=== PATIENT | female | born 1985 | race Caucasian/White ===

== ENCOUNTER 2021-02-07 06:00 | Inpatient (IN) | payer BC ==
[2021-02-07] MEDS ORDERED: METHYLERGONOVINE 0.2 MG/ML 1 ML AMP IM PRN (06:24)
[2021-02-07] MEDS ORDERED: TERBUTALINE 1 MG/ML VIAL SQ PRN (06:24)
[2021-02-07] MEDS ORDERED: CARBOPROST TROMETHAMINE 250 MCG/ML 1 ML AMP IM PRN (06:24)
[2021-02-07] MEDS ORDERED: OXYTOCIN 10 UNIT/ML 1 ML VIAL IM PRN (06:24)
[2021-02-07] MEDS ORDERED: LIDOCAINE 0.5% (PF) 5 MG/ML (50 ML SDV) SQ PRN (06:24)
[2021-02-07] MEDS ORDERED: OXYTOCIN 30 UNITS/500 ML NS 30 UNIT in SALINE 1 500ML.BAG IV SCH (06:30)
[2021-02-07] MEDS: LACTATED RINGERS 1,000 ML IV SCH ×3 (06:41→12:19)
[2021-02-07 07:03] LABS: Basophils % (A) 0 %; Eosinophils # (A) 0.1 k/uL (0-0.7); Eosinophils % (A) 1 %; HCT 36.1 % (34.0-46.0); HGB 12.7 gm/dL (11.4-16.0); Lymphocytes # (A) 2.1 k/uL (1.0-4.8); Lymphocytes % (A) 21 %; MCH 31.7 pg (25.0-35.0); MCV 90.6 fL (80.0-100.0); Mean Platelet Volume 7.1; Monocytes # (A) 0.5 k/uL (0-1.0); Monocytes % (A) 5 %; Neutrophils # (A) 7.1 k/uL (1.3-7.7); Neutrophils % (A) 71 %; Platelet Count 278 k/uL (150-450); RBC 3.99 m/uL (3.80-5.40); RDW 13.4 % (11.5-15.5)
--- NOTE | 2021-02-07 07:43 | P.HPOB ---
History of Present Illness H&P Date: 02/07/21 Chief Complaint: Here for elective induction of labor This is a 35-year-old white female 1 para 0 EDC 02/14/2021 at 39 weeks gestation who presents today for induction of labor. Fetus is been active throughout the . She denies vaginal bleeding, fluid leakage, or any additional issues. is remarkable for hypertension, advanced maternal age. Past medical history is significant for asthma in childhood. Past surgical history LEEP procedure 2015, wisdom teeth extracted, adenoidectomy. Current medications vitamins daily, baby aspirin daily. ALLERGIES none known. Family history significant for breast cancer, colon polyps, pancreatic cancer, hypertension, CVA, cardiac disease. Social history patient is single, her boyfriend is present. 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 history blood type is A+, rubella status immune. VDRL testing, urine culture, hepatitis B surface antigen, HIV testing, gonorrhea and chlamydia cultu res, group B strep cultures negative. One-hour Glucola 100. On exam patient is 5 foot 8 inches, 275 pounds, blood pressure 147/71 on admission, pulse 94. The general physical exam is within normal limits. Chest is clear in all correia. Extremities reveal no edema. Cervix is 3 cm dilated, 70% effaced, -2 station, vertex presentation, anterior and soft. Artificial amniorrhexis reveals clear fluid. heart rate is consistent with reactive NST. Impression: 39 week intrauterine , -induced hypertension, advanced maternal age, favorable cervix. Here for elective induction of labor. All signs reassuring. Plan: Oxytocin per hospital protocol. Close maternal and surveillance. Analgesic options reviewed with the patient. Anticipate normal spontaneous vaginal delivery. Review of Systems Constitutional: Reports as per HPI Past Medical History Past Medical History: Asthma, GERD/Reflux Additional Past Medical History / Comment(s): gestational HTN, childhood asthma History of Any Multi-Drug Resistant Organisms: None Reported Past Surgical History: Adenoidectomy Additional Past Surgical History / Comment(s): wisdom teeth Past Anesthesia/Blood Transfusion Reactions: Postoperative Nausea & Vomiting (PONV) Past Psychological History: Anxiety, Depression Additional Psychological History / Comment(s): not currently medicated Smoking Status: Former smoker Past Alcohol Use History: None Reported Past Drug Use History: None Reported - Past Family History Mother Family Medical History: No Reported History Medications and Allergies Home Medications Medication Instructions Recorded Confirmed Type Aspirin [Children's Aspirin] 162 mg PO DAILY 01/21/21 02/07/21 History Iron 18 mg PO DAILY 01/21/21 02/07/21 History Pnv No.95/Ferrous Fum/Folic AC 1 each PO DAILY 01/21/21 02/07/21 History [ Multivitamin Tablet] Famotidine [Pepcid] 20 mg PO DAILY 02/07/21 02/07/21 History Allergies Allergy/AdvReac Type Severity Reaction Status Date / Time No Known Allergies Allergy Verified 02/07/21 06:22 Exam Vital Signs Temp Pulse Resp BP Pulse Ox 02/07/21 06:46 96.6 F L 94 20 147/71 99 Intake and Output 02/06/21 02/07/21 02/07/21 22:59 06:59 14:59 Other: Weight 124.738 kg See dictation under HPI please Results Result Diagrams: 02/07/21 06:46 Assessment and Plan Assessment: 39 week intrauterine , advanced maternal age, maternal anxiety, hypertension and . All signs reassuring. Plan: Oxytocin per hospital protocol. Close maternal and surveillance. Anticipate normal spontaneous vaginal delivery. Time with Patient: Less than 30
[2021-02-07] MEDS ORDERED: fentaNYL (PF) 50 MCG/ML 5 ML AMP ONE (09:20)
[2021-02-07] MEDS ORDERED: ROPIVACAINE 5MG/ML 20ML VIAL ONE (09:20)
[2021-02-07] MEDS ORDERED: SODIUM CHLORIDE 0.9% 100 ML BAG ONE (09:20)
[2021-02-07] MEDS ORDERED: diphenhydrAMINE 50 MG CAP PO PRN (16:58)
[2021-02-07] MEDS ORDERED: diphenhydrAMINE ELIXIR 25 MG/10 ML CUP PO PRN (16:58)
[2021-02-07] MEDS ORDERED: diphenhydrAMINE 25 MG CAP PO PRN (16:58)
[2021-02-07] MEDS ORDERED: HYDROCORTISONE 2.5% RECTAL CREAM 30 GM TUBE RECTAL PRN (16:58)
[2021-02-07] MEDS ORDERED: LANOLIN CREAM 5 GM TUBE TOPICAL PRN (16:58)
[2021-02-07] MEDS ORDERED: ZOLPIDEM 5 MG TAB PO PRN (16:58)
[2021-02-07] MEDS ORDERED: diphenhydrAMINE 50 MG/ML 1 ML VIAL IVP PRN ×2 (16:58)
[2021-02-07] MEDS ORDERED: BENZOCAINE/MENTHOL SPRAY 1 GM/SPRAY AEROSOL TOPICAL PRN (16:58)
[2021-02-07] MEDS ORDERED: SIMETHICONE 80 MG CHEWABLE PO PRN (16:58)
--- NOTE | 2021-02-07 16:58 | P.PROBDLV ---
Vaginal Delivery Note - . Vaginal Delivery Note: This is a 35-year-old female 1 para 0 EDC 817 2139 weeks gestation who presented for induction with a history of hypertension. Rupee strep cultures negative, rubella status immune, blood type A positive. Please see dictated history and physical for details. Artificial amniorrhexis revealed clear fluid. Oxytocin was started and titrated per hospital protocol. Patient requested epidural and this was placed without difficulty per the anesthesia staff. She progressed well through the first stage of labor, became completely dilated at 1552 hrs. and began the second stage of labor at that time. With excellent maternal expulsive efforts ultimately the 's head crowned on the perineal body. Perineum was prepped and draped in usual sterile fashion. Patient was coached to continue exaggerated abduction of the lower extremities. delivered occiput anterior and restituted accordingly. There was a nuchal cord that was reduced. The right shoulder presented from underneath the pubic symphysis and was delivered with steady gentle downward traction. The oropharynx, nasopharynx, and external nares were all bulb suctioned on the perineal body. Patient was officially delivered of a liveborn female infant at 1637 hrs. Umbilical cord was doubly clamped and ligated, she was handed to waiting nurses for evaluation where scores of 9 and 9 at one and 5 minutes respectively were given. The placenta delivered spontaneously, it was inspected and noted to be intact with trivascular cord at 1640 hrs. Perineal body was then redraped and inspection of the cervix, vagina, perineum, periurethral, and perirectal areas revealed a small left first-degree laceration repaired in the usual fashion using a single ckohmv-ab-ivade suture of repeat. weighed 7 lbs. 13 oz. or 3555 g. Total estimated blood loss 250 mL's. All sponge needle and enhancement counts are correct at the end of the procedure. Patient is allowed to begin the bonding experience in the LDR.
[2021-02-07] MEDS: IBUPROFEN 600 MG TAB PO SCH (18:00)
[2021-02-07] MEDS: SENNOSIDES-DOCUSATE SODIUM 1 EACH TAB PO SCH (20:10)
[2021-02-08] MEDS: IBUPROFEN 600 MG TAB PO SCH ×4 (02:20→15:02)
[2021-02-08] MEDS: ACETAMINOPHEN TAB 325 MG TAB PO PRN ×3 (06:01→11:47)
[2021-02-08] MEDS: SENNOSIDES-DOCUSATE SODIUM 1 EACH TAB PO SCH (07:49)
[2021-02-08 07:57] VITALS: RESP 16
--- NOTE | 2021-02-08 08:03 | P.DS ---
Providers Date of admission: 02/07/21 06:06 Expected date of discharge: 02/08/21 Attending physician: Yessica Serrano Primary care physician: Stated None Hospital Course: This is a 35-year-old female 1 para 0 who presented at 39 weeks for induction of labor with favorable cervix. is remarkable for hypertension. Group B strep cultures negative. Rubella status immune. Please see dictated history and physical for details. Artificial amniorrhexis revealed clear fluid. Oxytocin was started and titrated per hospital protocol. Patient received an epidural per her request. She went on to deliver vaginally a liveborn female with scores of 9 and 9 at one and 5 minutes respectively. weighed 3555 g or 7 lbs. 13 oz. There was a small first-degree perineal laceration easily repaired. Please see my dictated delivery note for details. This morning the patient is doing well. She is voiding, inability, passing flatus without difficulty. Vital signs are stable and she is afebrile. Blood pressure has been normal, 120 to 130s over 70s to 80s. Minimal lochia rubra. Breasts are not engorged. is doing well. Patient is judged to be in very good condition for discharge home. Patient will follow-up with me in the office in 6 weeks. I have reminded her no intercourse, tampons or douching. She will use swuw-lne-mkgirtl Advil or Aleve, or Motrin as needed for pain. I have asked her to call with any fevers shakes or chills, foul smelling or copious lochia, with the passage of large blood clots, with any pain not alleviated by tynx-yrp-iunsjlo products, or indeed with any concerns. infant will follow-up with block engraver as per recommendations. Assessment: Doing well day #1 Patient Condition at Discharge: Good Plan - Discharge Summary Discharge Rx Participant: No New Discharge Prescriptions: No Action Aspirin [Children's Aspirin] 162 mg PO DAILY Iron 18 mg PO DAILY Pnv No.95/Ferrous Fum/Folic AC [ Multivitamin Tablet] 1 each PO DAILY Famotidine [Pepcid] 20 mg PO DAILY Discharge Medication List Aspirin [Children's Aspirin] 162 mg PO DAILY 01/21/21 [History] Iron 18 mg PO DAILY 01/21/21 [History] Pnv No.95/Ferrous Fum/Folic AC [ Multivitamin Tablet] 1 each PO DAILY 01/21/21 [History] Famotidine [Pepcid] 20 mg PO DAILY 02/07/21 [History] Follow up Appointment(s)/Referral(s): Yessica Serrano MD [STAFF PHYSICIAN] - 6 Weeks Discharge Disposition: HOME SELF-CARE
[2021-02-08 12:03] VITALS: BP 130/66; PULSE 76; TEMP 98.3
== END 2021-02-08 17:15 | disposition home or self-care (01) | DRG 807 ==
LOC: 4FBP 06:06
PROVIDERS: ADMIT Obstetrics & Gynecology; ATTEND Obstetrics & Gynecology
PROC: 10E0XZZ Delivery of Products of Conception, External Approach (ICD-10-PCS; principal; 2021-02-07)
PROC: 0HQ9XZZ Repair Perineum Skin, External Approach (ICD-10-PCS; principal; 2021-02-07)
DX: O99.344 Other mental disorders complicating childbirth (principal); Z37.0 Single live birth; O99.52 Diseases of the respiratory system complicating childbirth; Z3A.39 39 weeks gestation of pregnancy; Z79.82 Long term (current) use of aspirin; Z80.0 Family history of malignant neoplasm of digestive organs; Z80.3 Family history of malignant neoplasm of breast; Z82.3 Family history of stroke; Z82.49 Family history of ischemic heart disease and other diseases of the circulatory system; Z87.891 Personal history of nicotine dependence; Z83.71 Family history of colonic polyps; O70.0 First degree perineal laceration during delivery; O69.81X0 Labor and delivery complicated by cord around neck, without compression, not applicable or unspecified; O13.4 Gestational [pregnancy-induced] hypertension without significant proteinuria, complicating childbirth; J45.909 Unspecified asthma, uncomplicated; F41.9 Anxiety disorder, unspecified; F32.9 Major depressive disorder, single episode, unspecified; K21.9 Gastro-esophageal reflux disease without esophagitis
CPT/HCPCS: 85025; 86850; 86900; 86901

== ENCOUNTER 2023-11-28 06:00 | Inpatient (IN) | payer BC ==
[2023-11-28] MEDS ORDERED: TRANEXAMIC 1,000 MG/100ML-NACL 1,000 MG in EMPTY BAG 1 BAG IV PRN (06:24)
[2023-11-28] MEDS ORDERED: OXYTOCIN 10 UNIT/ML 1 ML VIAL IM PRN (06:24)
[2023-11-28] MEDS ORDERED: METHYLERGONOVINE 0.2 MG/ML 1 ML AMP IM PRN (06:24)
[2023-11-28] MEDS ORDERED: miSOPROStoL 200 MCG TAB PO PRN (06:24)
[2023-11-28] MEDS ORDERED: CARBOPROST TROMETHAMINE 250 MCG/ML 1 ML AMP IM PRN (06:24)
[2023-11-28] MEDS ORDERED: LIDOCAINE 0.5% (PF) 5 MG/ML (50 ML SDV) SQ PRN (06:24)
[2023-11-28] MEDS ORDERED: TERBUTALINE 1 MG/ML VIAL SQ PRN (06:24)
[2023-11-28] MEDS ORDERED: OXYTOCIN 30 UNITS/500 ML NS 30 UNIT in SALINE 1 500ML.BAG IV SCH (06:30)
[2023-11-28 06:56] LABS: Basophils % (A) 0 %; Eosinophils # (A) 0.2 k/uL (0-0.7); Eosinophils % (A) 2 %; HCT 36.8 % (34.0-46.0); HGB 12.5 gm/dL (11.4-16.0); Lymphocytes # (A) 1.8 k/uL (1.0-4.8); Lymphocytes % (A) 21 %; MCHC 33.9 g/dL (31.0-37.0); MCV 88.4 fL (80.0-100.0); Mean Platelet Volume 8.4; Monocytes # (A) 0.4 k/uL (0-1.0); Monocytes % (A) 5 %; Neutrophils # (A) 6.2 k/uL (1.3-7.7); Neutrophils % (A) 70 %; Platelet Count 209 k/uL (150-450); RBC 4.17 m/uL (3.80-5.40); RDW 13.6 % (11.5-15.5); WBC 8.9 k/uL (3.8-10.6)
[2023-11-28] MEDS ORDERED: ROPIVACAINE 5 MG/ML 30 ML VIAL ONE (08:42)
[2023-11-28] MEDS ORDERED: SODIUM CHLORIDE 0.9% 250 ML BAG ONE (08:42)
[2023-11-28] MEDS ORDERED: fentaNYL (PF) 50 MCG/ML 5 ML AMP ONE (08:42)
[2023-11-28] MEDS: LACTATED RINGERS 1,000 ML IV SCH (09:47)
[2023-11-28] MEDS: OXYTOCIN 30 UNITS/500 ML NS 30 UNIT in SALINE 1 500ML.BAG IV SCH (09:48)
[2023-11-28] MEDS ORDERED: BENZOCAINE/MENTHOL SPRAY 1 GM/SPRAY AEROSOL TOPICAL PRN (13:01)
[2023-11-28] MEDS ORDERED: LANOLIN CREAM 1 GM TUBE TOPICAL PRN (13:01)
[2023-11-28] MEDS ORDERED: SIMETHICONE 80 MG CHEWABLE PO PRN (13:01)
[2023-11-28] MEDS ORDERED: diphenhydrAMINE 50 MG/ML 1 ML VIAL IVP PRN ×2 (13:01)
[2023-11-28] MEDS ORDERED: HYDROCORTISONE 2.5% RECTAL CREAM 30 GM TUBE RECTAL PRN (13:01)
[2023-11-28] MEDS ORDERED: diphenhydrAMINE 50 MG CAP PO PRN (13:01)
[2023-11-28] MEDS ORDERED: diphenhydrAMINE 25 MG CAP PO PRN (13:01)
[2023-11-28] MEDS ORDERED: ZOLPIDEM 5 MG TAB PO PRN (13:01)
--- NOTE | 2023-11-28 13:05 | P.PROBDLV ---
Vaginal Delivery Note - . Vaginal Delivery Note: Findings: Viable female delivered at 1243, weight of 8 pounds 13.6 ounces 37-year-old G2, P1 at 39 weeks that presented to labor and delivery for scheduled induction of labor. Patient was admitted to labor delivery and Pitocin induction of labor was begun. Patient underwent spontaneous rupture of membranes at 8:00. Fluid was noted to be clear in nature. Patient did become quickly uncomfortable and request epidural. Initial epidural gave no relief of her discomfort therefore it was removed and replaced. The second epidural gave good relief of her contraction pain. Patient made quick progress toward complete and began pushing. Patient had a normal spontaneous vaginal delivery of a viable female infant at 1243, weight of 8 pounds 13.6 ounces. After 2- minute delay the umbilical cord was doubly clamped and cut and the placenta was delivered spontaneously intact with a three-vessel cord being noted. Patient did sustain a first-degree vaginal laceration during delivery. This was repaired in the usual fashion with 3-0 Rapide. Uterus was noted to be firm and below the umbilicus. Right rubber catheter was used to drain the bladder of clear yellow urine. All counts were to be correct x 2 at the end of the delivery. Patient and infant tolerated delivery well and are resting comfortably.
--- NOTE | 2023-11-28 13:05 | P.HPOB ---
History of Present Illness H&P Date: 11/28/23 Chief Complaint: IUP at 39 weeks 37-year-old G2, P1 at 39 weeks that presents to labor and delivery for scheduled induction of labor. Patient is receiving routine care which has been essentially uncomplicated. Patient does note good movement denies vaginal bleeding contractions or loss of fluid. blood work this patient is a blood type of a positive, rubella status immune, hepatitis B surface engine negative, HIV negative, RPR is nonreactive, group B strep cultures are negative. Review of Systems Constitutional: Denies chills, Denies fatigue, Denies fever Ears, nose, mouth and throat: Denies headache Cardiovascular: Reports leg edema Respiratory: Denies dyspnea Gastrointestinal: Denies constipation, Denies diarrhea, Denies nausea, Denies vomiting Genitourinary: Reports Past Medical History Past Medical History: Asthma, GERD/Reflux Additional Past Medical History / Comment(s): gestational HTN, childhood asthma History of Any Multi-Drug Resistant Organisms: None Reported Past Surgical History: Adenoidectomy Additional Past Surgical History / Comment(s): wisdom teeth Past Anesthesia/Blood Transfusion Reactions: No Reported Reaction, Postoperative Nausea & Vomiting (PONV) Past Psychological History: Anxiety, Depression Additional Psychological History / Comment(s): not currently medicated Smoking Status: Former smoker Past Alcohol Use History: None Reported Past Drug Use History: None Reported - Past Family History Mother Family Medical History: No Reported History Medications and Allergies Home Medications Medication Instructions Recorded Confirmed Type Aspirin [Children's Aspirin] 162 mg PO DAILY 01/21/21 02/07/21 History Iron 18 mg PO DAILY 01/21/21 02/07/21 History Pnv No.95/Ferrous Fum/Folic AC 1 each PO DAILY 01/21/21 02/07/21 History [ Multivitamin Tablet] Famotidine [Pepcid] 20 mg PO DAILY 02/07/21 02/07/21 History Sertraline [Zoloft] 25 mg PO DAILY 11/28/23 11/28/23 History Allergies Allergy/AdvReac Type Severity Reaction Status Date / Time No Known Allergies Allergy Verified 11/28/23 06:22 Exam Osteopathic Statement: *. No significant issues noted on an osteopathic structural exam other than those noted in the History and Physical/Consult. Vital Signs Resp BP 11/28/23 06:28 18 127/79 Intake and Output 11/27/23 11/28/23 11/28/23 22:59 06:59 14:59 Other: Weight 131.088 kg Targeted physical exam is performed this date General is a well-nourished well- developed female in no acute distress, breathing is nonlabored, heart has a regular rhythm, abdomen is gravid, on initial cervical exam by RN she is 3/80/-1, spontaneous rupture membranes was appreciated, heart tones have noted to be category 1 and she is kay regularly. Results Result Diagrams: 11/28/23 06:40 Assessment and Plan (1) Term Current Visit: Yes Status: Acute Code(s): Z34.90 - ENCNTR FOR SUPRVSN OF N ORMAL , UNSP, UNSP TRIMESTER SNOMED Code(s): 93063233 Plan: 37-year-old G2, P1 at 39 weeks of presents for scheduled elective induction of labor. Patient is admitted and Pitocin induction of labor has begun. Patient underwent spontaneous rupture of membranes clear in nature. Patient does request epidural. Anesthesia was notified. Anticipate spontaneous vaginal delivery.
[2023-11-28] MEDS: IBUPROFEN 600 MG TAB PO SCH (13:17)
[2023-11-28] MEDS: SENNOSIDES-DOCUSATE SODIUM 1 EACH TAB PO SCH (20:10)
[2023-11-29 01:58] VITALS: RESP 16
[2023-11-29] MEDS: ACETAMINOPHEN TAB 325 MG TAB PO PRN (04:47)
--- NOTE | 2023-11-29 08:45 | P.PNOBGVD ---
Subjective - Subjective Principal diagnosis: day #1, status postnormal spontaneous vaginal delivery Interval history: Patient is doing well this morning. She states her pain is well-controlled. She is ambulating voiding without difficulty. Lochia is known to be moderate. Infant is in the nursery for suspected infection, on IV antibiotics Patient reports: Reports appetite normal, Reports voiding normally, Reports pain well controlled, Reports ambulating normally : other (Special care nursery on IV antibiotics) Objective - Latest Vital Signs Latest vital signs: Vital Signs Temp Pulse Resp BP BP Pulse Ox 11/29/23 08:00 97.9 F 74 16 115/76 11/29/23 00:00 98.7 F 68 16 130/79 99 11/28/23 16:00 98.4 F 84 18 117/73 95 11/28/23 14:48 96.7 F L 71 16 116/58 11/28/23 14:35 97.4 F L 71 16 112/60 11/28/23 14:20 67 16 106/55 11/28/23 14:05 71 16 117/56 11/28/23 13:50 62 16 120/66 11/28/23 13:35 69 16 116/55 11/28/23 13:20 65 16 118/56 11/28/23 13:05 75 18 125/62 98 11/28/23 12:50 96.3 F L 70 18 130/62 98 Intake and Output 11/28/23 11/29/23 11/29/23 22:59 06:59 14:59 Other: # Voids 1 1 - Exam Extremities: Present: normal, edema Abdomen: Present: normal appearance, soft Uterus: Present: normal, firm Assessment and Plan (1) Term Current Visit: Yes Status: Acute Code(s): Z34.90 - ENCNTR FOR SUPRVSN OF NORMAL , UNSP, UNSP TRIMESTER SNOMED Code(s): 04135389 (2) Status post vaginal delivery Current Visit: Yes Status: Acute Code(s): QKT0565 - SNOMED Code(s): 120128916 (3) Obstetrical laceration, first degree Current Visit: Yes Status: Acute Code(s): O70.0 - FIRST DEGREE PERINEAL LACERATION DURING DELIVERY SNOMED Code(s): 89900784 Plan: Patient is doing well . Plan to continue routine care.
[2023-11-29] MEDS: SERTRALINE 25 MG TAB PO SCH (10:14)
[2023-11-29] MEDS: PRENATAL VIT-IRON-FOLIC ACID 1 EACH TABLET PO SCH (10:15)
--- NOTE | 2023-11-30 07:56 | P.DS ---
Providers Date of admission: 11/28/23 06:12 Expected date of discharge: 11/30/23 Attending physician: Rosey Allen Primary care physician: Stated None - Discharge Diagnosis(es) (1) Term Current Visit: Yes Status: Acute (2) Status post vaginal delivery Current Visit: Yes Status: Acute (3) Obstetrical laceration, first degree Current Visit: Yes Status: Acute Hospital Course: This is a 37-year-old 2 now para 2 that presented to labor and delivery on 11/27 for scheduled induction of labor. Patient had been receiving routine care which had been essentially uncomplicated. Patient had an in duction of labor with her first and was desirous of 1 with this . Patient was admitted and Pitocin induction of labor was begun. Patient had spontaneous rupture of membranes around 8 AM noted to be clear in nature. Patient did become uncomfortable and request epidural. Epidural was placed without difficulty by the anesthesia department. Patient progressed to complete began pushing and had a normal spontaneous vaginal delivery of a viable female at 1243, weight of 8 pounds 13.6 ounces. Patient has done well . In this day #2 she is ambulating and voiding without difficulty. She is tolerating a regular diet without nausea or vomiting. She states her pain is well-controlled. did go to the nursery for temperature control and rule out infection. Currently receiving IV antibiotics. Patient Condition at Discharge: Good Plan - Discharge Summary New Discharge Prescriptions: No Action Aspirin [Children's Aspirin] 162 mg PO DAILY Iron 18 mg PO DAILY Sertraline [Zoloft] 25 mg PO DAILY Pnv No.95/Ferrous Fum/Folic AC [ Multivitamin Tablet] 1 each PO DAILY Famotidine [Pepcid] 20 mg PO DAILY Discharge Medication List Aspirin [Children's Aspirin] 162 mg PO DAILY 01/21/21 [History] Iron 18 mg PO DAILY 01/21/21 [History] Pnv No.95/Ferrous Fum/Folic AC [ Multivitamin Tablet] 1 each PO DAILY 01/21/21 [History] Famotidine [Pepcid] 20 mg PO DAILY 02/07/21 [History] Sertraline [Zoloft] 25 mg PO DAILY 11/28/23 [History] Follow up Appointment(s)/Referral(s): Rosey Allen DO [Doctor of Osteopathic Medicine] - 01/01/24 1:15 pm Patient Instructions/Handouts: Vaginal Delivery (GEN), Vaginal Delivery (DC) Activity/Diet/Wound Care/Special Instructions: No intercourse, tampons, or tub baths. No heavy lifting greater than a gallon o f milk. No driving for two weeks. Call with any fever, shakes or chills, with any pain not alleviated by over the counter meds, or with any quesions or concerns. Fczu-qam-vvevlvw ibuprofen 600 mg or 3 tablets every 6 hours as needed for pain. Discharge Disposition: HOME SELF-CARE
[2023-11-30 09:18] VITALS: BP 133/82; PULSE 79; TEMP 98.2
== END 2023-11-30 18:00 | disposition home or self-care (01) | DRG 807 ==
LOC: 4FBP 06:12
PROVIDERS: ADMIT Obstetrics & Gynecology Obstetrics; ATTEND Obstetrics & Gynecology Obstetrics
PROC: 10E0XZZ Delivery of Products of Conception, External Approach (ICD-10-PCS; principal; 2023-11-28)
PROC: 0HQ9XZZ Repair Perineum Skin, External Approach (ICD-10-PCS; 2023-11-28)
PROC: 3E033VJ Introduction of Other Hormone into Peripheral Vein, Percutaneous Approach (ICD-10-PCS; 2023-11-28)
DX: O70.0 First degree perineal laceration during delivery (principal); Z37.0 Single live birth; Z3A.39 39 weeks gestation of pregnancy; Z79.82 Long term (current) use of aspirin; Z79.899 Other long term (current) drug therapy; Z87.891 Personal history of nicotine dependence
CPT/HCPCS: 85025; 86850; 86900; 86901